=== PATIENT | female | born 1955 | race Caucasian/White ===

== ENCOUNTER → 2016-11-21 | Outpatient (CLI) | payer OTHER ==
[~2016-11-21] MED LIST: AMBIEN5 MG PO; CEFEPIME-D1 GM/50 ML IV; CIPRO500 MG PO; CITRATE OF MAG296 ML PO; CLEOCIN300 MG PO; COLACE100 MG PO; DOXYCYCLINE HY100 MG PO; DURAGESIC50 MCG TD; FEMARA2.5 MG PO; FLAGYL500 MG PO; FLEXERIL5 MG PO; HYDROCHLOROTHIA50 MG PO; IBUPROFEN200 M1 PO; K-DUR20 MEQ PO; KLOR-CON M2020 MEQ PO; LOTREL 10/41 CAPSULE PO; MIRALAX17 GM PO; NORCO 5/3251 TABLET PO; PERCOCET 5/31 TABLET PO; ROXICODONE5 MG PO; TYLENOL WITH C1 EACH PO; UNISOM SLEEP AI25 MG PO; ZOFRAN8 MG PO
== END | disposition home or self-care (01) ==
LOC: NUC 10-30 10:00
DX: C79.51 Secondary malignant neoplasm of bone (principal); C50.911 Malignant neoplasm of unspecified site of right female breast
CPT/HCPCS: 78306; A9503

== ENCOUNTER 2016-11-26 14:39 | Emergency (ER) | payer OTHER ==
[~2016-11-26] VITALS: Ht 157.5 cm; Wt 83.2 kg
[~2016-11-26 14:39] MED LIST changes: -FLEXERIL5 MG PO; -NORCO 5/3251 TABLET PO
[2016-11-26 15:53] LABS: HEMATOCRIT 45.6 % (36.0-46.0); MCH 30.7 PG (29.0-34.0); MCHC 33.8 G/DL (30.0-36.0); MCV 90.8 FL (83-99); RBC DIS.WIDTH-CV 14.4 % (11.8-14.6); RBC DIS.WIDTH-SD 47.6 % (39-53); RED BLOOD COUNT 5.02 M/uL (3.80-5.20); WHITE BLOOD COUNT 10.3 K/uL (4.1-10.2)
[2016-11-26 16:05] LABS: CHLORIDE 111 mEq/L (99-109); SODIUM 140 mEq/L (136-147)
[2016-11-26 16:07] LABS: GLUCOSE 88 mg/dL (70-99)
[2016-11-26 16:08] LABS: ANION GAP 10 MEQ/L (2-14)
[2016-11-26 16:11] LABS: GFR ESTIMATE (CALCULATED) 40 mL/min/; UREA NITROGEN (BUN) 18 mg/dL (9-23)
[2016-11-26 16:17] LABS: TROP-I INTERPRETATION NEGATIVE; TROPONIN-I < 0.01 ng/mL (0.0-0.30)
[2016-11-26 17:19] LABS: MEAN PLAT.VOLUME 12.9 uM^3 (9.5-12.4); PLATELET COUNT 133 K/uL (156-360)
[2016-11-26] MEDS ORDERED: NORCO 5/3251 TABLET PO (18:42)
[2016-11-26] MEDS ORDERED: FLEXERIL5 MG PO (18:42)
[2016-11-26 19:04] VITALS: BP 164/77
== END 2016-11-26 19:06 | disposition home or self-care (01) ==
LOC: EME 14:39
DX: M54.12 Radiculopathy, cervical region (principal); M25.512 Pain in left shoulder; M79.602 Pain in left arm; Z85.3 Personal history of malignant neoplasm of breast; F17.200 Nicotine dependence, unspecified, uncomplicated
CPT/HCPCS: 71020; 72050; 80048; 84484; 85027; 93005; 99281; 99283; J1100